=== PATIENT | female | born 1995 | race African-American/Black ===

== ENCOUNTER 2020-05-12 04:35 | Emergency (ER) | payer OTHER, MEDICARE ==
[~2020-05-12] VITALS: Ht 165.1 cm; Wt 104.3 kg
[2020-05-12] MEDS ORDERED: KETOROLAC TROMETHAMINE 30 MG/ML VIAL IM STA (05:27)
[2020-05-12] MEDS ORDERED: KETOROLAC TROMETHAMINE 30 MG/ML VIAL ONE (05:37)
[2020-05-12 07:38] VITALS: BP 117/66
== END 2020-05-12 07:43 | disposition home or self-care (01) ==
LOC: ER 05:28
DX: M54.2 Cervicalgia (principal); M79.601 Pain in right arm; V43.62XA Car passenger injured in collision with other type car in traffic accident, initial encounter; Y92.488 Other paved roadways as the place of occurrence of the external cause
CPT/HCPCS: 72050; 73030; 73080; 99283; J1885